=== PATIENT | female | born 1980 | race African-American/Black ===

== ENCOUNTER 2025-01-15 18:25 | Emergency (ER) | payer OTHER ==
[~2025-01-15] VITALS: Ht 162.6 cm; Wt 69.0 kg
[2025-01-15 18:26] VITALS: TEMP 36.4; O2SAT 98
[2025-01-15] MEDS ORDERED: LORAZEPAM 0.5MG TABLET PO ONE (20:30)
[2025-01-15 20:51] LABS: BASOPHILS % 0.9 % (0.0-2.0); EOSINOPHILS % 0.3 % (0.0-5.0); HEMATOCRIT. 36.8 % (36.0-48.0); HEMOGLOBIN. 11.7 g/dL (12.0-16.0); LYMPHOCYTES % 16.1 % (20.0-50.0); MEAN PLATELET VOLUME 8.0 fl (7.4-10.4); MONOCYTES % 4.7 % (2.0-8.0); NEUTROPHILS % 78.0 % (40.0-76.0); PLATELET 348 x1000/uL (130-400); RED BLOOD CELL COUNT 4.35 mill/uL (4.2-5.4); RED CELL DISTRIBUTION WIDTH 19.2 % (11.6-14.6)
[2025-01-15 21:04] LABS: CREATININE 1.0 mg/dL (0.6-1.0); UREA NITROGEN BLOOD 10 mg/dL (9-23)
[2025-01-15 21:05] LABS: TROPONIN I HIGH SENSITIVITY 10 ng/L (3.0-34)
[2025-01-15] MEDS: LORAZEPAM 0.5MG TABLET PO SCH (22:45)
[2025-01-15 22:55] VITALS: BP 183/114; PULSE 85; RESP 16; O2SAT 100
== END 2025-01-15 23:05 | disposition left against medical advice (07) ==
LOC: ER 18:25
DX: F41.9 Anxiety disorder, unspecified (principal); I10 Essential (primary) hypertension
CPT/HCPCS: 80048; 85025; 84484; 36415; 71045; 93005; 99285; Z7610 ×2